=== PATIENT | female | born 1985 | race Caucasian/White ===

== ENCOUNTER 2016-12-02 12:05 | Emergency (ER) | payer OTHER ==
[2016-12-02] MEDS ORDERED: NORMAL SALINE 10 ML SYRINGE FLUSH IVP PRN (12:30)
[2016-12-02 12:43] VITALS: RESP 14; TEMP 97.8
[2016-12-02] MEDS ORDERED: Sodium Chloride 0.9% 1,000 ML PRIMARY IV ONE (12:43)
[2016-12-02 13:11] LABS: BASOPHILS # (AUTO) 0.03 10*3/UL; BASOPHILS % (AUTO) 0.3 % (0-1); EOSINOPHILS # (AUTO) 0.21 10*3/UL; EOSINOPHILS % (AUTO) 2.2 % (0-8); HEMATOCRIT 42.8 % (37.0-47.0); HEMOGLOBIN 14.3 g/dL (12.0-16.0); LYMPHOCYTES # (AUTO) 2.02 10*3/uL; MEAN CORPUSCULAR HEMOGLOBIN 30.4 PG (27-31); MEAN CORPUSCULAR HGB CONC 33.4 g/dL (33-37); MEAN CORPUSCULAR VOLUME 91.1 FL (81-99); MEAN PLATELET VOLUME 10.3 FL (7.4-12.2); MONOCYTES # (AUTO) 0.81 10*3/UL (0.3-0.8); MONOCYTES % (AUTO) 8.5 % (5-15); NEUTROPHILS % (AUTO) 67.5 % (50-80)
[2016-12-02 13:14] LABS: BLOOD UREA NITROGEN 15 mg/dL (7-22); BUN/CREATININE RATIO 21.42 (6-20); CALCIUM 8.9 mg/dL (8.7-10.7); EST GLOMERULAR FILTRATION > 60 (>60 ml/min/1.73m(2)); PLATELET MORPHOLOGY COMMENT NORMAL MORPHOLOGY (NORM); WBC MORPHOLOGY COMMENT NORMAL MORPHOLOGY (NORM)
[2016-12-02 13:15] LABS: RBC MORPHOLOGY COMMENT NORMAL MORPHOLOGY (NORM)
[2016-12-02 13:19] LABS: BILIRUBIN,URINE NEGATIVE (NEG); CLARITY,URINE CLEAR (CLEAR); COLOR,URINE YELLOW; GLUCOSE, URINE (UA) NEGATIVE (NEG); NITRATE,URINE NEGATIVE (NEG); OCCULT BLOOD,URINE SMALL (NEG); PH,URINE 6.5 (5.0-8.5); PROTEIN,URINE NEGATIVE (NEG); UROBILINOGEN,URINE 0.2 EU/dL (0.2)
[2016-12-02 13:33] LABS: BACTERIA,URINE RARE; SQUAMOUS EPITHELIAL CELL,UR RARE; URINE SAMPLE TYPE CLEAN CATCH URINE; WBC,URINE 0-1
--- NOTE | 2016-12-02 13:38 | PDOC ---
Female Problem HPI - General Chief Complaint: Vag Complaint/Bleed, <20WK IUP Stated Complaint: VAGINAL BLEEDING, 9 WEEKS (POSS 7 WKS) Date Seen by Provider: 12/02/16 Time Seen by Provider: 12:10 Source: POSITIVE: Patient Exam Limitations: POSITIVE: No limitations Nurse's Notes Reviewed & Considered: Yes - History of Present Illness Initial Comments: The patient is a 31-year-old at approximately 9 weeks gestational age based on last menstrual period who presents to the emergency department with complaints of vaginal spotting. She states that on Thursday of this week she had onset of a small amount of vaginal spotting. She states initially this was darkish brown in color. Yesterday she had some bright red spotting and today it 's been more darkish again. She does have some low-grade abdominal cramping on both sides which she rates about a 2 out of 10 which has been ongoing for the past several days as well. She denies any urinary symptoms, fevers or chills or any other associated symptoms. She did not have any problems with her first . She does have a history of ovarian cysts. She is in the process of trying to establish OB care with Dr. Azar. She had contacted their office and they recommended that she come here to the emergency room for evaluation. - Patient Home Medications Home Medications: Home Medications Levothyroxine Sodium 112 mcg PO DAILY 12/02/16 Vits W-Ca,Fe,FA(<1Mg) [] 1 each PO DAILY 12/02/16 - Patient Allergies Allergies/Adverse Reactions: Allergies Allergy/AdvReac Type Severity Reaction Status Date / Time No Known Allergies Allergy Verified 12/02/16 12:11 Past Medical History - heen HEENT History: Denies History Cardiovascular History: Denies History Respiratory History: Denies History Gastrointestinal History: Denies History Genitourinary History: Denies History Endocrine History: Hypothyroidism Musculoskeletal History: Denies History Prosthesis or Implant: No Neurological History: Denies History Blood Disorders: Denies History Psychiatric History: Denies History History of Sexually Transmitted Diseases: No Female Reproductive History: Ovarian Cyst LMP: 09/26/2016 Obstetrical History: Denies History : 2 Para: 1 Cancer History: Denies History In Past Year Been Physically Harmed or Verbally Threatened: No (PER PATIENT) History of MDRO: No History of Other Communicable Diseases: No Tobacco Use: Never Smoker Alcohol Use: None Substance Use Type: None Previous Surgical History: No Significant Family History: No pertinent family hx Past Medical History Reviewed: Reviewed - No Changes ROS - Limitations ROS Limitations: No Limitations Constitution: DENIES: Chills, Fever Cardiovascular: REPORTS: Denies Cardiac Symptoms Respiratory: REPORTS: Denies Resp Symptoms Neurological: REPORTS: Denies Neuro Symptoms Female Genitourinary Exam - General Appearance General Appearance: POSITIVE: Alert, Cooperative, No Acute Distress - HEENT HEENT: POSITIVE: Head Inspection Nml, Eyes Inspection Nml, Ears Inspection Nml - Neck Neck: POSITIVE: Normal Inspection - Respiratory Respiratory: POSITIVE: No Respiratory Distress, Breath Sounds Normal - Cardiovascular Cardiovascular: POSITIVE: Regular Rate and Rhythm, Heart Sounds Normal - Abdomen Abdomen: POSITIVE: Soft, Non-Tender, Mass - Skin Skin: POSITIVE: Intact, No Rash - Extremities Extremity: Normal ROM: (All Extremities), Normal Inspection: (All Extremities) Female Genitourinary Progress - Results Reviewed by me Xrays/CTs/US Reviewed by me: Yes Discussed with Radiologist: Yes Radiology Findings: Ultrasound reveals an intrauterine consisting of a yolk sac with no visible heart beat, the yolk sac measures 6 weeks gestational age. Lab Results Reviewed: Yes Lab Results:: Laboratory Results 12/02/16 12/02/16 Range/Units 12:45 12:50 WBC 9.49 (4.8-10.8) 10^3/uL RBC 4.70 (4.20-5.40) 10^6/uL Hgb 14.3 (12.0-16.0) g/dL Hct 42.8 (37.0-47.0) % MCV 91.1 (81-99) FL MCH 30.4 (27-31) PG MCHC 33.4 (33-37) g/dL RDW Std Deviation 42.4 (39-50) fL RDW Coeff of Beto 13.0 (11.5-14.5) % Plt Count 235 (140-350) 10*3/uL MPV 10.3 (7.4-12.2) FL Immature Gran % (Auto) 0.2 (0-5) % Neut % (Auto) 67.5 (50-80) % Lymph % (Auto) 21.3 (10-50) % Howard % (Auto) 8.5 (5-15) % Eos % (Auto) 2.2 (0-8) % Baso % (Auto) 0.3 (0-1) % Immature Gran # (Auto) 0.02 10*3/UL Neut # (Auto) 6.40 10*3/UL Lymph # (Auto) 2.02 10*3/uL Howard # (Auto) 0.81 H (0.3-0.8) 10*3/UL Eos # (Auto) 0.21 10*3/UL Baso # (Auto) 0.03 10*3/UL WBC Morphology Comment Normal morphology (NORM) Plt Morphology Comment Normal morphology (NORM) RBC Morph Comment Normal morphology (NORM) Sodium 139 (135-145) meq/L Potassium 3.9 (3.8-5.2) meq/L Chloride 105 (98-112) meq/L Carbon Dioxide 24 (23-33) meq/L Anion Gap 10 (5-20) BUN 15 (7-22) mg/dL Creatinine 0.7 (0.50-1.20) mg/dL Estimated GFR > 60 (>60 ml/min/1.73m(2)) BUN/Creatinine Ratio 21.42 H (6-20) Glucose 79 (78-110) mg/dL Calculated Osmolality 287.0 (267-292) mOsm/kg Calcium 8.9 (8.7-10.7) mg/dL HCG, Quant 81678 mIU/ML Ur Collection Type Clean catch urine Urine Color Yellow Urine Clarity Clear (CLEAR) Urine pH 6.5 (5.0-8.5) Ur Specific Norman 1.025 (1.005-1.030) Urine Protein Negative (NEG) mg/dl Urine Glucose (UA) Negative (NEG) mg/dL Urine Ketones Trace (NEG) Urine Occult Blood Small H (NEG) Urine Nitrate Negative (NEG) Urine Bilirubin Negative (NEG) Urine Urobilinogen 0.2 (0.2) EU/dL Ur Leukocyte Esterase Negative (NEG) Urine RBC None (NONE) /hpf Urine WBC 0-1 (NONE) Ur Squamous Epith Cells Rare (NONE) Ur Renal Epithelial Cell None (NONE) Urine Crystals None Urine Bacteria Rare (NONE) Urine Casts None (NONE) Urine Mucus Few (NONE) Urine Trichomonas None (NONE) Urine Yeast None (NONE) Ur Culture Indicated? Culture not set Blood Type A POSITIVE - Patient's Progress MDM / ED Course: Current ultrasound reveals an IUP consisting of a yolk sac with no visible heartbeat. At this point it would be expected to find heartbeat in a normal . Most likely this represents a missed AB. There is however still a small possibility of an early intrauterine . These findings were discussed with the patient and her . I also discussed the patient with Dr. Azar. She made arrangements to see the patient in 2 days for follow- up. The patient was advised return to the emergency room if she develops increased pain, fever, significant vaginal bleeding, any worsening or change in symptoms. - Consult Counseled: POSITIVE: Patient, Family, RE: Lab Results, RE: Radiology Results, RE : DX, RE: Need for F/U Patient Care Time - Estimated PCT Patient Care Time (In Minutes): 25 Vital Signs - VS Reviewed Vital Signs Reviewed: Yes Discharge Clinical Impression: Bleeding in early Discharge Disposition: Discharged to Home Condition: Stable Additional Instructions: The ultrasound done here in the emergency department today shows a yolk sac measuring approximately 6 weeks however there was no heartbeat identified. This most likely represents a miscarriage however there is still a small possibility of an early . Dr. Azar is aware of current findings as well. She would like to see you for follow-up in the next 2-3 days. Recommend Tylenol as needed for pain. Return to the emergency room if increased pain, fever, increased bleeding, any worsening or change in symptoms. Your blood type is A+. Follow Up With: NONE,NONE [Primary Care Provider] -
--- NOTE | 2016-12-02 16:25 | DI ---
US OB TRANSVAGINAL,12/02/2016 2:30 PM: Clinical History: Vaginal bleeding and cramping. Previous Exam: None at this facility. Findings: Multiple transvaginal grayscale and color Doppler sonographic images are obtained through the pelvis demonstrating a single gestational sac within the fundal portion of the endometrium. There is a single pole noted measuring 4 mm from crown to rump. This corresponds with an estim ated gestational age of 6 weeks 0 days. There are no detectable Doppler heart tones. A yolk sac is seen and appears grossly normal. Impression: Single pole without detectable Doppler heart tones. This is most consistent with a spontaneous .
--- NOTE | 2016-12-02 16:25 | DI ---
US OB LESS THAN 14 WEEKS,12/02/2016 12:30 PM: Clinical History: Vaginal bleeding and pelvic cramping Previous Exam: Vaginal bleeding cramping. Findings: Multiple transabdominal grayscale and color Doppler sonographic images are obtained through the pelvi s demonstrate a single gestational sac within the endometrial canal. There is a small pole with a crown-rump length of 5 mm corresponding with an estimated gestatio nal age of 6 weeks 2 days. There are no detectable Doppler heart tones. The yolk sac measures 2 mm. Impression: 1. pole noted within the pelvis without detectable Doppler heart tones most consistent with a s pontaneous .
== END 2016-12-02 15:09 | disposition home or self-care (01) ==
LOC: ER 12:05
DX: O26.851 Spotting complicating pregnancy, first trimester (principal); R10.32 Left lower quadrant pain; R10.31 Right lower quadrant pain; Z3A.01 Less than 8 weeks gestation of pregnancy
CPT/HCPCS: 76801; 76817; 80048; 81001; 81003; 84702; 85025; 86900; 86901; 96360; 96361; 99283; J7030